=== PATIENT | female | born 1975 | race Caucasian/White ===

== ENCOUNTER 2018-02-17 13:51 | Emergency (ER) | payer MEDICAID, OTHER ==
[~2018-02-17] VITALS: Ht 167.6 cm; Wt 107.3 kg
[~2018-02-17 13:51] MED LIST: PRED20TA PO
[2018-02-17 14:35] LABS: BASOPHILS # (AUTO) 0.1 X10'3 (0-0.2); BASOPHILS % (AUTO) 0.5 % (0-1); EOSINOPHILS # (AUTO) 0.2 X10'3 (0-0.9); EOSINOPHILS % (AUTO) 1.9 % (0-6); HEMATOCRIT 41.7 % (35.0-45.0); HEMOGLOBIN 14.4 g/dl (12.0-16.0); LYMPHOCYTES # (AUTO) 1.4 X10'3 (1.1-4.8); LYMPHOCYTES % (AUTO) 12.8 % (21-51); MEAN CORPUSCULAR HEMOGLOBIN 32.1 PG (27.0-31.0); MEAN CORPUSCULAR HGB CONC 34.6 % (33.0-36.5); MEAN CORPUSCULAR VOLUME 92.8 FL (78-98); MEAN PLATELET VOLUME 7.7 FL (7.4-10.4); MONOCYTES # (AUTO) 0.6 X10'3 (0-0.9); MONOCYTES % (AUTO) 5.7 % (2-12); NEUTROPHILS # (AUTO) 8.9 X10'3 (1.8-7.7); NEUTROPHILS % (AUTO) 79.1 % (42-75); PLATELET COUNT 187 X10'3 (140-440); RED BLOOD COUNT 4.49 X10'6 (4.20-5.60); RED CELL DISTRIBUTION WIDTH 12.6 % (11.5-14.5); WHITE BLOOD COUNT 11.2 X10'3 (4.5-11.0)
[2018-02-17 14:39] LABS: URINE HCG NEGATIVE (NEG)
[2018-02-17 14:41] LABS: CLARITY,URINE CLOUDY (Clear); COLOR,URINE YELLOW (Yellow); GLUCOSE, URINE NEGATIVE (Neg); KETONES,URINE NEGATIVE (Neg); LEUKOCYTE ESTERASE ,URINE NEGATIVE (Neg); NITRITES, URINE NEGATIVE (Neg); OCCULT BLOOD,URINE LARGE (Neg); PH,URINE 5.5 (4.8-8.0); PROTEIN,URINE NEGATIVE (Neg); UROBILINOGEN,URINE 0.2 E.U/dL (0.2-1.0)
[2018-02-17 14:42] LABS: UA COLLECTION TYPE CLN CATCH MIDSTREAM
[2018-02-17 14:44] LABS: PROTHROMBIN TIME 10.5 SECONDS (9.0-12.0)
[2018-02-17 14:47] LABS: MUCUS STRANDS MODERATE /LPF (Neg); SQUAMOUS EPITHELIAL CELL,UR MANY /LPF (FEW)
[2018-02-17 14:48] LABS: BACTERIA,URINE 1+ /HPF (Neg); WBC,URINE 0-4 /HPF (0-4)
[2018-02-17 14:49] LABS: ALANINE AMINOTRANSFERASE 27 U/L (12-78); ALBUMIN 3.7 G/DL (3.4-5.0); ALBUMIN/GLOBULIN RATIO 1.1 (1.1-1.5); ALKALINE PHOSPHATASE 63 IU/L (46-116); ANION GAP 9 (8-16); ASPARTATE AMINO TRANSFERASE 12 U/L (10-37); BILIRUBIN,TOTAL 0.6 MG/DL (0.1-1.0); BLOOD UREA NITROGEN 18 MG/DL (7-18); BUN/CREATININE RATIO 22.2 (6.6-38.0); CALCIUM 8.7 MG/DL (8.5-10.1); CHLORIDE 106 MMOL/L (99-107); CREATININE 0.81 MG/DL (0.40-0.90); GLUCOSE 101 MG/DL (70-104); SODIUM 139 MMOL/L (135-145); TOTAL CARBON DIOXIDE 23.7 MMOL/L (24-32); TOTAL PROTEIN 7.2 G/DL (6.4-8.2); eGFR 78 ML/MIN
[2018-02-17] MEDS ORDERED: famotidine/PF 10 mg/ml inj IV ONE (16:50)
[2018-02-17] MEDS ORDERED: dicyclomine 10mg/ml 2ml ampule IM ONE (16:50)
[2018-02-17] MEDS ORDERED: proCHLORperazine 10 MG/2 ml inj IV ONE (16:50)
[2018-02-17] MEDS ORDERED: normal saline 1000ML IV soln IVB ONE (16:50)
[2018-02-17] MEDS ORDERED: diphenhydrAMINE 50 mg/ml inj IV ONE ×2 (16:50→18:35)
[2018-02-17] MEDS ORDERED: methylPREDNISolone sod succ 125mg/2ml vial IV ONE (16:50)
[2018-02-17 18:03] VITALS: BP 142/69
[2018-02-17] MEDS ORDERED: LORazepam 2 mg/ml vial IV ONE (18:35)
[2018-02-17] MEDS ORDERED: morphine 4 MG/ML inj SYRINge IV ONE (18:40)
[2018-02-17] MEDS ORDERED: DICY10CA88 PO (19:32)
[2018-02-17] MEDS ORDERED: FAMO40TA73 PO (19:32)
[2018-02-17] MEDS ORDERED: ONDA4TAB12 PO (19:32)
[2018-02-17 21:10] LABS: OCCULT BLOOD STOOL POSITIVE (Neg)
== END 2018-02-17 19:44 | disposition home or self-care (01) ==
LOC: ER 13:51
DX: K52.9 Noninfective gastroenteritis and colitis, unspecified (principal); K92.1 Melena; Z88.0 Allergy status to penicillin; Z91.013 Allergy to seafood; Z88.8 Allergy status to other drugs, medicaments and biological substances; Z79.899 Other long term (current) drug therapy
CPT/HCPCS: 36415; 80053; 81001; 81025; 82272; 85025; 85610; 96372; 96374; 96375; 99284; J0500; J0780; J1200; J2060; J2930; J3490; J7030; 96361; J2270